=== PATIENT | female | born 1980 | race Two or more races ===

== ENCOUNTER 2016-12-06 01:56 | Emergency (ER) | payer BC ==
--- NOTE | ~2016-12-06 | ER ---
[facility] AGE[facility] 36 Y [address] ROOM: [place] [address] LOCATION: [facility] ADMIT DATE: 12/06/2016 ER/Outpatient Report DISCHARGE DATE: FAMILY PHYSICIAN: Guadalupe Triplett MD ATTENDING PHYSICIAN: Tyler Shaikh Admission date and time documented on the medical record. I saw the patient at 0210 hours. CHIEF COMPLAINT: Mid right upper quadrant abdominal pain. HISTORY OF PRESENT ILLNESS: The patient is a 36-year-old female, who was woken from sleep about an hour prior to admission to the emergency room with mid to right upper quadrant abdominal pain. She has had about 4 episodes of vomiting along with the nausea. Some diarrhea. No blood in her stool or vomitus. No chest pain or shortness of breath. No back pain. No lightheadedness, dizziness, syncope, or near syncope. No fall or trauma. No recent colds, coughs, flus, fever, chills, or sweats. No headache, eyes, ears, nose, throat, neck, or spine pain. No joint or muscle swelling, redness, or pain. No skin eruptions or rash. No endocrine problems, neuro changes, psych issues. HOME MEDICATIONS: None. ALLERGIES: NONE. SOCIAL HISTORY: Occasionally smokes. Occasionally drinks alcohol. SIGNIFICANT PAST MEDICAL HISTORY: Leukemia. OPERATIONS: Port placement and removal. REVIEW OF SYSTEMS: All systems reviewed by me are negative with the exception of those discussed in the history of present illness. PHYSICAL EXAMINATION: VITAL SIGNS: Temperature 97.9 tympanic, pulse 70, respirations 24, blood pressure 148/88, O2 saturation on room air is 96%. PATIENT'S NAME: PATRICK GORDON [facility] AGE: 36 Y [address] ROOM: [place] [address] LOCATION: [facility] ADMIT DATE: 12/06/2016 ER/Outpatient Report DISCHARGE DATE: FAMILY PHYSICIAN: Guadalupe Triplett MD ATTENDING PHYSICIAN: Tyler Shaikh HEAD: Normocephalic. EYES, EARS, NOSE, THROAT: Clear. Mucous membranes moist. NECK: No nuchal rigidity. No thyromegaly or cervical adenopathy. No tenderness. SPINE: Nontender. No deformity. LUNGS: Clear. Good air flow. No rales, rhonchi, or wheezes. HEART: Regular. Pulses are palpable. No chest wall or ribcage pain to palpation. No deformity. ABDOMEN: Soft, nondistended. Tender in the epigastric right upper quadrant. No palpable masses. No organomegaly. Bowel tones present. No CVA tenderness. EXTREMITIES: Intact. Neurovascularly intact. SKIN: Clear. No skin eruptions or rash. LABORATORY DATA: Urine test was negative. White count was 8600, 58 segs, 31 lymphs, 6 monos, 5 eos, 1 baso. Hemoglobin 13.3, hematocrit 40.6, and platelet count 291,000. CMS was normal except for a slightly elevated chloride at 112. Amylase and lipase were normal. IMAGING STUDIES: Ultrasound of the gallbladder showed no gallstones. No thickened gallbladder wall. No pericholecystic fluid. Normal common duct. See Radiology report. I went ahead with the CT scan of the abdomen and pelvis that showed no free air or free fluid. There was some mild thickening of the transverse colon consistent with mild colitis, also some mildly thickened wall and loops of small bowel consistent with an enteritis. Normal appendix. Normal gallbladder, liver, spleen, pancreas, kidneys. CT scan was read by Radiology, see dictated transcribed report. IMPRESSION: Abdominal pain involving the mid right upper quadrant, etiology uncertain and most likely secondary to transverse colitis plus a small-bowel enteritis. PLAN: The patient was given IV normal saline fluids here in the emergency room, Zofran IV for nausea and vomiting, morphine IV for pain. Did give her Cipro 400 mg IV in the emergency room. Discharged home. Observation. Activity as tolerated. Clear liquid diet for 24 hours and advance diet as tolerated. [place] 10/325 as needed for pain, Zofran 4 mg as needed for nausea and vomiting, and Cipro 2 times a day. Follow up with personal physician in 3 to 4 days or sooner if needed. Discussion ensued with the patient concerning my findings and recommendations, she understands. PATIENT'S NAME: PATRICK GORDON [facility] AGE: 36 Y [address] ROOM: [place] [address] LOCATION: [facility] ADMIT DATE: 12/06/2016 ER/Outpatient Report DISCHARGE DATE: FAMILY PHYSICIAN: Guadalupe Triplett MD ATTENDING PHYSICIAN: Tyler Shaikh TYLER SHAIKH MD SDS/modl /[id number] d: 12/06/16 0428 t: 12/14/16 1826, OUTPATIENT REPORT
[2016-12-06 02:21] LABS: BASOPHIL # 0.1 K/uL (0.0-0.2); BASOPHIL % 0.8 %; EOSINOPHIL # 0.4 K/uL (0.0-0.5); EOSINOPHIL % 4.5 %; HEMATOCRIT 40.6 % (33.0-46.0); HEMOGLOBIN 13.3 g/dL (11.0-15.0); IMMATURE GRANULOCYTE # 0.1 K/uL (0.0-0.3); IMMATURE GRANULOCYTE % 0.6 %; LYMPHOCYTE # 2.6 K/uL (0.8-4.0); LYMPHOCYTE % 30.6 %; MCH 28.5 pg (27.0-34.0); MCHC 32.8 gm/dL (32.0-36.5); MCV 87.1 fl (83.0-98.0); MONOCYTE # 0.5 K/uL (0.0-1.0); MPV 8.7 fl (9.4-12.4); NEUTROPHIL % 57.5 %; NRBC % 0 /100WBC (0-0.00); PLATELET COUNT 291 K/uL (150-450); RBC 4.66 M/uL (3.50-5.50); RDW-CV 13.2 % (11.9-14.6); WBC 8.6 K/uL (4.0-11.0)
[2016-12-06 02:36] LABS: ALBUMIN 3.8 gm/dL (3.5-5.0); ALK PHOS 66 IU/L (33-138); ALT 16 IU/L (12-78); ANION GAP 10.8 (10.0-19.0); AST 15 IU/L (10-40); BLOOD UREA NITROGEN 13 mg/dL (6-24); CHLORIDE 112 mMol/L (96-110); CO2 26 mMol/L (22-32); CREATININE 0.9 mg/dL (0.5-1.1); ESTIMATED GFR (MDRD EQUATION) > 60; POTASSIUM 3.8 mMol/L (3.7-5.1); SODIUM 145 mMol/L (135-145); TOTAL BILIRUBIN 0.2 mg/dL (0.0-1.5); TOTAL PROTEIN 7.6 g/dL (6.0-8.4)
== END 2016-12-06 05:41 | disposition disaster alternative care site (69) ==
LOC: GMED 01:56
PROVIDERS: Emergency Medicine
DX: R10.11 Right upper quadrant pain (principal); Z85.6 Personal history of leukemia
CPT/HCPCS: J0744; J2270; J2405; J7030; Q9967